=== PATIENT | female | born 1965 | race Caucasian/White ===

== ENCOUNTER → 2020-12-21 | Outpatient (CLI) | payer OTHER ==
[~2020-12-21] MED LIST: ASPIR 8181 MG PO; COLACE 100MG C100 MG PO; HALDOL 0.5 MG0.5 MG PO; HYDROXYZINE HCL25 MG PO; HYDROXYZINE PAM25 MG PO; IBUPROFEN600 MG PO; IMDUR ER TAB 3030 MG PO; LOPRESSOR 25 MG25 MG PO; NORCO 10-325 T1 EACH PO; PRILOSEC OTC20 MG PO; TRAZODONE HCL50 MG PO
== END ==
LOC: LAB 10:46
DX: R19.7 Diarrhea, unspecified (principal)
CPT/HCPCS: 36415

== ENCOUNTER 2022-05-17 17:20 | Observation (INO) | payer OTHER ==
[~2022-05-17] VITALS: Ht 154.9 cm; Wt 99.8 kg
[2022-05-17 18:36] LABS: HEMOGLOBIN 12.1 gm/dl (12.3-15.3); RED BLOOD COUNT 4.83 M/UL (4.00-5.10); WHITE BLOOD COUNT 11.6 K/UL (4.5-11.0)
[2022-05-17 19:27] LABS: BUN/CREATININE RATIO 10 (0-10)
[2022-05-17] MEDS ORDERED: METFORMIN HCL500 MG PO (23:13)
[2022-05-17] MEDS ORDERED: PROAIR HFA8.5 GM INH (23:13)
[2022-05-17] MEDS ORDERED: PIOGLITAZONE HC30 MG PO (23:14)
[2022-05-17] MEDS ORDERED: LIPITOR TAB 2020 MG PO (23:14)
[2022-05-17] MEDS ORDERED: VISTARIL 25 MG25 MG PO (23:16)
[2022-05-17] MEDS ORDERED: TRAZODONE HCL50 MG PO (23:17)
[2022-05-18 05:18] LABS: HEMOGLOBIN 11.5 gm/dl (12.3-15.3); RED BLOOD COUNT 4.58 M/UL (4.00-5.10); WHITE BLOOD COUNT 11.4 K/UL (4.5-11.0)
[2022-05-18 05:43] LABS: BUN/CREATININE RATIO 9 (0-10)
[2022-05-18] MEDS ORDERED: TRAZODONE HCL50 MG PO (09:48)
[2022-05-18] MEDS ORDERED: ASPIRIN EC81 MG PO (17:14)
== END 2022-05-18 18:20 | disposition home or self-care (01) ==
LOC: ER1 17:20 → MED SURG 4 21:57 → CDU 21:57 → MED SURG 4 23:00
PROVIDERS: Family Medicine; ADMIT Internal Medicine
DX: R07.89 Other chest pain (principal); E11.9 Type 2 diabetes mellitus without complications; E78.5 Hyperlipidemia, unspecified; J44.9 Chronic obstructive pulmonary disease, unspecified; E66.9 Obesity, unspecified; K52.9 Noninfective gastroenteritis and colitis, unspecified; E87.6 Hypokalemia; F41.9 Anxiety disorder, unspecified; Z20.822 Contact with and (suspected) exposure to COVID-19; Z68.41 Body mass index [BMI] 40.0-44.9, adult; Z79.84 Long term (current) use of oral hypoglycemic drugs; Z79.899 Other long term (current) drug therapy; Z82.49 Family history of ischemic heart disease and other diseases of the circulatory system
CPT/HCPCS: ECHO; 0240U; 36415; 71045; 71250; 78452; 80048; 80053; 80061; 82550; 82553; 82607; 82962; 83036; 83735; 83880; 84132; 84439; 84443; 84484; 85025; 85379; 85610; 87081; 87880; 93005; 93017; 93306; 99285; A9502; G0378; J2785